=== PATIENT | male | born 1975 | race Caucasian/White ===

== ENCOUNTER 2018-11-11 00:19 | Emergency (ER) | payer SELFPAY ==
[~2018-11-11] VITALS: Ht 175.3 cm; Wt 88.5 kg
--- NOTE | 2018-11-11 01:58 | NUR ---
[facility] INTO INTERVIEW PATIENT
--- NOTE | 2018-11-11 02:18 | NUR ---
PATIENT DOWN FOR CT SCAN VIA WHEELCHAIR
--- NOTE | 2018-11-11 02:35 | NUR ---
PATIENT BACK FROM CT SCAN WITH NO DISTRESS NOTED
[2018-11-11] MEDS ORDERED: IBUPROFEN 600 MG TABLET ONE (04:10)
[2018-11-11] MEDS ORDERED: IBUPROFEN 600 MG TABLET PO ONE (04:15)
--- NOTE | 2018-11-11 04:21 | NUR ---
Patient discharged to home in stable conditon. Written and verbal after care instructions given. Patient verbalizes understanding of instructions. WALKED OUT OF ER WITH NO DISTRESS NOTED
[2018-11-11 04:22] VITALS: BP 140/99
== END 2018-11-11 04:23 | disposition home or self-care (01) ==
LOC: ER 00:19
DX: M54.2 Cervicalgia (principal); M25.512 Pain in left shoulder; M54.5 Low back pain; M25.551 Pain in right hip; V43.52XA Car driver injured in collision with other type car in traffic accident, initial encounter; Y93.89 Activity, other specified; Y92.410 Unspecified street and highway as the place of occurrence of the external cause; Y99.8 Other external cause status
CPT/HCPCS: 72100; 72125; 73030; 73502; A4663